=== PATIENT | male | born 1935 ===

== ENCOUNTER 2020-04-04 13:19 | Outpatient (REF) | payer OTHER, SELFPAY ==
--- NOTE | 2020-04-04 12:51 | SKI_PTH ---
PATIENT: SILVINA ATWOOD LOC: [facility] U#:[id number] AGE/SX: 84/M ROOM: RE04/04/[address]: Brock Jacobs DO : 1935 BED: DIS: 04/04/2020 SPEC #: [id number] RECD: 04/04/20 16:28 STATUS: RAMSES REQ #: [id number] CECE: 04/04/20 12:[address]: Brock Jacobs DEPT: Surgical Specimen RECD BY: Nai Pearson Tissues: 1 - SKIN BIOPSY(SHAVE/PUNCH) Procedures: SKIN LEVEL 4 Comments: [id number]
== END 2020-04-04 13:39 ==
LOC: LBN 13:19
PROVIDERS: Visit Provider Otolaryngology Otolaryngology/Facial Plastic Surgery
DX: D22.4 Melanocytic nevi of scalp and neck (principal); Z86.007 Personal history of in-situ neoplasm of skin
CPT/HCPCS: 88305

== ENCOUNTER 2021-02-13 17:44 | Outpatient (REF) | payer OTHER, SELFPAY ==
--- NOTE | 2021-02-13 11:27 | SKI_PTH ---
PATIENT: SILVINA ATWOOD LOC: [facility] U#:[id number] AGE/SX: 85/M ROOM: RE02/13/[address]: Brock Jacobs DO : 1935 BED: DIS: 02/13/2021 SPEC #: [id number] RECD: 02/13/21 18:15 STATUS: RAMSES REQ #: [id number] CECE: 02/13/21 11:[address]: Brock Jacobs DEPT: Surgical Specimen RECD BY: Nai Pearson ENTERED: 02/13/21 18:16 SP TYPE: VAZQUEZ CUELLAR DR: Mariano Stone Tissues: 1 - SKIN BIOPSY(SHAVE/PUNCH) 2 - SKIN BIOPSY(SHAVE/PUNCH) Procedures: SKIN LEVEL 4 Comments: [id number]
== END 2021-02-13 17:45 | disposition home or self-care (01) ==
LOC: LBN 17:44
PROVIDERS: PCP Internal Medicine; Visit Provider Otolaryngology Otolaryngology/Facial Plastic Surgery
DX: C44.311 Basal cell carcinoma of skin of nose (principal)
CPT/HCPCS: 88305